=== PATIENT | female | born 1925 | race Caucasian/White ===

== ENCOUNTER 2016-12-16 12:08 | Emergency (ER) | payer MEDICARE ==
--- NOTE | 2016-12-16 12:03 | ED.REPORT ---
HPI-Stroke / CVA Dec 16, 2016 ED Provider: Dr. Staples Pt is an 89 y/o female w/ a hx of stroke in 2015, HTN, previous breast CA, presenting to the ED via EMS due to stroke-like symptoms with last known normal 11:25 today. The patient was eating in the dining room at her living facility and began to experience left-sided weakness and then became unresponsive. EMS was called and code-stroke was activated. Current medications are unknown although previous medication list does not have any anticoagulants listed. Further history unable to be obtained. Nursing Notes Stated Complaint: STROKE Nursing Notes Reviewed: Yes Allergies: Coded Allergies: No Known Allergies (Unverified Allergy, Unknown, 12/19/14) Scheduled Acetaminophen (Tylenol) 325 Mg Tablet 650 MG PO Q4 Amlodipine (Norvasc) 5 Mg Tablet 10 MG PO DAILY Ascorbic Acid (Vitamin C) 500 Mg Tablet 500 MG PO DAILY (Reported) Aspirin (Aspir 81) 81 Mg Tablet.dr 81 MG PO DAILY (Reported) Atorvastatin (Lipitor) 20 Mg Tablet 20 MG PO HS Cholecalciferol (Vitamin D3) (Vitamin D) 1,000 Unit Capsule 1,000 UNIT PO DAILY (Reported) Metoprolol Succinate ER (Metoprolol Succinate ER) 25 Mg Tab.er.24h 25 MG PO DAILY (Reported) Multivitamin with Minerals (Multiple Vitamin) 1 Each Tablet 1 EACH PO DAILY ( Reported) Multivitamin with Minerals (One Daily 50 Plus) 1 Each Tablet 1 EACH PO DAILY Omeprazole Magnesium (Omeprazole) 20 Mg Capsule.dr 20 MG PO DAILY (Reported) Polyethylene Glycol 3350 (Miralax) 17 Gm Powd.pack 17 GM PO DAILY Sennosides (Senna) 8.6 Mg Capsule 8.6 MG PO DAILY Scheduled PRN Docusate Sodium (Docusate Sodium) 50 Mg Capsule 50 MG PO DAILY PRN PRN For Constipation General Time Seen by Provider: 12:10 Chief Complaint Weakness Left-sided Hx Obtained From: EMS Unable to Obtain Hx: Patient condition Arrived By: Ambulance Time last known well 11:25 Sudden in Onset?: Yes Symptom Duration: Since onset Progression Since Onset: Constant Risk Factors )( TPA Administration/Criteria Stroke Thrombolytic Therapy : TPA Considered: No TPA Administered Intravenously: No, not indicated Past Medical History Past Medical History 1. Hypertension. 2. Reflux disease and heartburn. 3. CVA about 2 years ago with transient left-sided weakness. 4. [place] CVA 5. Hx of breast cancer Past Surgical History Bowel ressection Smoking History Current Every Day Smoker Social History Alcohol Use: 1-3 per week Drug Use: Denies drug use Ambulatory Status Walker Review of Systems Unable to Obtain ROS Patient condition Neurologic: Reports: Change LOC, Focal weakness Physical Exam Initial Vital Signs Vital Signs (First) Date Time Temp Pulse Resp B/P Pulse Ox O2 Delivery O2 Flow Rate FiO2 12/16/16 12:36 35.8 78 22 265/60 94 Nasal Cannula 3 Initial VS: Reviewed, Vital signs abnormal ENT: Mucous membranes moist, Conjunctiva normal, No scleral icterus Abdomen / GI: Soft, Non-tender, No distention Extremities: Vascular intact, No swelling Skin: Warm, Dry, No cyanosis General/Constitutional: Awake Head / Eyes: Atraumatic, Normocephalic Neck: Atraumatic, No swelling Respiratory / Chest: Breath sounds NL, Breath sounds = bilat, No rales, No rhonchi, No wheezing Cardiovascular: Heart rate NL, Regular rhythm, Heart sounds NL, No gallop, No murmurs, No rubs NEURO: Opens eyes to voice Opens and closes RUE to answer questions PSYCH: Unable to be assessed Interpretation & Diagnostics Interpretation & Diagnostics: CT chest/abd with and without contrast: IMPRESSION: 1. No evidence of aortic dissection or aortic aneurysm. 2. Atherosclerosis including the coronary vasculature. 3. Atherosclerotic disease likely causes significant stenosis of the origin of the superior mesenteric artery and the left renal artery. 4. Cardiomegaly. 5. Patulous esophagus. Distal esophageal obstructing lesion cannot be excluded. Recommend either endoscopy or air-contrast upper GI series for further evaluation when clinically feasible. 6. 1.3 cm left thyroid nodule. Recommend thyroid ultrasound when clinically feasible. 7. 1.1 cm right lower lobe solid nodule. Recommend follow up CT scan of the chest in 3 months based on criteria outlined below. Fleischner Society criteria for SOLID lung nodule followup. Nodule size (mm)Low-risk patientHigh-risk [id number] follow-up neededFollow-up at 12 mo; if no change, no further follow-up>9-5Duvykq-ab CT at 12 mo; if no change, no further follow-up needed.Initial follow-up CT at 6-12 mo, then 18-24 mo if no change. >6-8Initial follow-up CT at 6-12 mo, then 18-24 mo if no change. Initial follow-up CT at 3-6 mo, then 9-12 mo and 24 mo if no change. >8Follow-up CT at 3, 9, 24 mo. Or PET and/or biopsy.Same as for low-risk pts. Dictated by: Yovana Lyle MD, PhD on 12/16/2016 at 12:53 Approved by: Yovana Lyle MD, PhD on 12/16/2016 at 13:06 ECG Interpretation ECG Interpretation: Sinus rhythm rate 90 T wave inversions in V1, V2 Time: 12:38 Interpreted by: ED physician Normal ECG Interpretation: No acute ischemic changes CT Head Interpretation IMPRESSION: 1. Right temporal hemorrhage with midline shift and compression of the third ventricle. In addition, there is also appearance of intraventricular tension in the posterior right horn. 2. Moderate microvascular ischemic changes. The above findings were called to the ER on 12/16/16 at 12:21 PM. A message was left for Dr. Garrett Wilder was not immediately available for consultation. However, it is noted that Dr. Garrett Wilder was aware of the hemorrhage. This study fulfills neurological imaging criteria for inclusion or exclusion of acute stroke therapies based on available published neurological guidelines. Dictated by: Tala Hines M.D. on 12/16/2016 at 12:21 Approved by: Tala Hines M.D. on 12/16/2016 at 12:25 Study: Head CT no contrast Interpretation / Wet Read by: Wet read ED physician, Interpret - Radiologist, Discussed w radiologist CT C-Spine Interpretation IMPRESSION: No acute bony abnormality is found in the cervical spine. Prominent degenerative changes are present. Old irregularity of the right third rib is present. Dictated by: Rajinder Butler M.D. on 12/16/2016 at 12:36 Approved by: Rajinder Butler M.D. on 12/16/2016 at 12:40 Study type: CT no contrast Interpretation / Wet Read by: Interpret - Radiologist Re-Eval/Medical Decision Med Decision/Clinical Course 89-year-old female history of CVAs presenting as code stroke. Patient was called code stroke on arrival. Her last normal was approximately 1 hour prior to arrival. Then with left-sided deficits. On arrival she was responsive and following some commands but became increasingly somnolent and altered. Her head CT showed a large right-sided intracranial hemorrhage. I discussed with the family and they requested comfort measures and reported this is what the family would have wanted. Therefore care was withdrawn and patient was kept comfortable. She at 1342. No cardiac activity no respirations, unresponsive to pain, pupils fixed and dilated, no cardiac activity on bedside ultrasound or on court recording monitor for several minutes of observation. Cause of hemorrhagic stroke. Re-Evaluation/Progress #1: Time of Eval: 12:16 Re-Evaluation/Progress Note: body technician informs me of intracranial hemorrhage. I went to the CT room and confirmed presence of large acute hemorrhage. Will contact the daughter. Re-Evaluation/Progress #2: Time of Eval: 12:19 Re-Evaluation/Progress Note: Case discussed with daughter over the phone. She is requesting comfort measures at this time. Re-Evaluation/Progress #3: Time of Eval: 12:30 Re-Evaluation/Progress Note: The daughter has arrived and the current status of the case was discussed. She confirms the plan for comfort care. I informed the patient of hemorrhagic stroke and need for admission. She squeezes my hand to indicate that she understands her condition. Re-Evaluation/Progress #4: Time of Eval: 13:30 Re-Evaluation/Progress Note: Nurse called me into room due to extreme bradycardia. Patient exhibiting few sporadic heartbeats. The daughter understands the situation. Re-Evaluation/Progress #5: Time of Eval: 13:40 Re-Evaluation/Progress Note: Nurse called me into the room due to asystole. The patient was observed for 2 minutes without heart beat, respiration. No cardiac contractility. Time of called 13:42. The patient's brother is now present and understands the situation. Counseled Regarding: Diagnosis, Lab results Patient Discharge & Departure Impression: Primary Impression: Hemorrhagic stroke Additional Impression: Cardiac arrest Disposition: Discharge Condition All VS Reviewed: Yes Condition: Referrals: OTHER,PHYSICIAN (PCP) Crit Care Except Billable Proc Time Spent: 105-134 minutes (125) Services Performed: Patient management by me, Time spent at bedside, Reviewing test results, Reviewing imaging, Discussing patient care, Documentation in record, Time with fam/surrogate Scribe Attestation Portions of this note were transcribed by Edouard Cain. I, Dr. Staples personally performed the history, physical exam and medical decision-making; I reviewed and confirmed the accuracy of the information in the transcribed note. Signed by Birdie Barnhart, 12/16/16 - 1230 Vincent Staples MD Dec 16, 2016 12:03 EDOUARD CAIN Dec 16, 2016 12:12
[~2016-12-16 12:08] MED LIST: ACET-1890 PO; AMLO-39 PO; ASCO500T8 PO; ASPI-628 PO; ATOR20TA PO; CHOL100045 PO; DOCU50CA7 PO; METO25TA99 PO; MULT-426 PO; MULT-621 PO; OMEP-113 PO; POLY17PO6 PO; SENN8.6C6 PO
--- NOTE | 2016-12-16 12:27 | DRSVH ---
PROCEDURE: CT BRAIN (TPA) ([id number]) INDICATIONS: Stroke TECHNIQUE: Noncontrast 4.5 mm thick angled axial sections acquired from the foramen magnum to the vertex, with c oronal reformats. COMPARISON: None. FINDINGS: Image quality: Excellent. CSF spaces: Basal cisterns are patent. No extra-axial fluid collections. The ventricles are symmet kobi in size and shape. Brain: There is a parenchymal focus of hyperdensity within the right temporal lobe involving the bas al ganglia internal and external capsules. It measures 29 mm AP by 26 mm transverse. There is makeda zeb of the third ventricle with approximately 3 mm above right to left midline shift. There is also appearance of hyperdensity within the posterior horn of the right lateral ventricle. There is cerebra l volume loss for age, with resultant ventricular and sulcal prominence. There are periventricular a nd deep white matter chronic small vessel ischemic changes. There is intracranial internal carotid a rtery atherosclerosis. Skull and face: Calvarium and visualized facial bones appear intact, without suspicious lesions. Sinuses: Visualized sinuses and mastoids are clear. IMPRESSION: 1. Right temporal hemorrhage with midline shift and compression of the third ventricle. In addition, there is also appearance of intraventricular tension in the posterior right horn. 2. Moderate microvascular ischemic changes. The above findings were called to the ER on 12/16/16 at 12:21 PM. A message was left for Dr. Garrett meade was not immediately available for consultation. However, it is noted that Dr. Garrett Wilder was aware of the hemorrhage. This study fulfills neurological imaging criteria for inclusion or exclusion of acute stroke therapie s based on available published neurological guidelines. Dictated by: Tala Hines M.D. on 12/16/2016 at 12:21 Approved by: Tala Hines M.D. on 12/16/2016 at 12:25
[2016-12-16 12:36] VITALS: BP 265/60; PULSE 78; RESP 22; O2SAT 94
--- NOTE | 2016-12-16 12:42 | DRSVH ---
PROCEDURE: CT CERVICAL SPINE WITHOUT CONTRAST ([id number]) INDICATIONS: POSITIVE HEAD SCAN/?TRANSFER TO [facility] TECHNIQUE: Noncontrast 3 mm thick sections acquired from the skull base to the T4 level. Sagittal and coronal r eformats were then constructed. For radiation dose reduction, the following was used: automated exp osure control, adjustment of mA and/or kV according to patient size. COMPARISON: [facility], , CHEST 1VW (PORTABLE), 12/19/2014, 15:05. FINDINGS: Image quality: Excellent. Bones: There is no irregularity of the posterior right third rib seen on the chest x-ray of 12/19/14. No acute bony abnormality is seen in the cervical spine. Prominent disc degenerative disease is prese nt from the C3-4 level inferiorly to the C6-7 level. Soft: Prevertebral soft tissues are normal in thickness. No paravertebral hematomas. No apical pne umothoraces. IMPRESSION: No acute bony abnormality is found in the cervical spine. Prominent degenerative changes are present. Old irregularity of the right third rib is present. Dictated by: Rajinder Butler M.D. on 12/16/2016 at 12:36 Approved by: Rajinder Butler M.D. on 12/16/2016 at 12:40
[2016-12-16] MEDS ORDERED: Ondansetron 2 mg/mL 2 mL Inj IVPUSH PRN (12:50)
[2016-12-16 13:06] VITALS: BP 122/99; PULSE 85; RESP 15; O2SAT 91
--- NOTE | 2016-12-16 13:07 | DRSVH ---
PROCEDURE: CT ANG CHEST/ABD W/WO CONTRAST ([id number]) INDICATIONS: PATIENT FOUND DOWN/ABNORMAL BLOOD PRESSURE TECHNIQUE: Precontrast 5 mm thick sections acquired from the lung apices to the iliac crests. After the adminis tration of intravenous contrast, 3 mm thick sections again acquired from the lung apices to the iliac crests. 3-dimensional maximum intensity projection (MIP) oblique sagittal and coronal reformats wer e then acquired, and/or 3-dimensional volume rendering reformats. For radiation dose reduction, the following was used: automated exposure control. COMPARISON: [facility], , CHEST 1VW (PORTABLE), 12/19/2014, 15:05. FINDINGS: Image quality: Excellent. AORTA: Intramural hematoma: Absent. Maximum hematoma thickness: None applicable. Focal contrast enhancement: Intramural blood pool (< 2 mm neck or imperceptible communication with aortic lumen): Absent. Ulcer-like projection (broad communication with aortic lumen > 3 mm): Absent. Dissection: Absent Jake classification: None applicable Maximum aortic diameter: 3.4 cm. [If Jake A dissection, > 5.0 cm has a poorer prognosis. If Sta nford B dissection, > 4.0 cm has a poorer prognosis.] Periaortic hematoma: Absent. CHEST: Lungs and pleura: Emphysematous changes noted in the lung apices. Atelectasis noted in the dependent portion of the lung bases. 1.1 cm nodule noted in the posterior and medial aspect of the superior seg ment of the right lower lobe. No pleural effusions or pneumothorax. Central and peripheral airways are patent and normal in caliber. Mediastinum: Heart size is enlarged. Atherosclerotic calcifications noted in the aorta, great vessel s and the coronary vasculature. No pericardial effusion. No mediastinal or hilar adenopathy by size criteria. Central pulmonary arteries are normal in size. Esophagus is patulous. Distal obstructing e sophageal lesion cannot be excluded. Recommend endoscopy or air-contrast upper GI series for further evaluation. Bones and chest wall: Surgical clips noted in the left breast and left axilla. No axillary adenopath y by size criteria. 1.3 cm diameter hypoattenuating nodule noted in the left lobe of the thyroid gla nd. No suspicious bony lesions. No vertebral body compression fractures. ABDOMEN: Vasculature: Celiac trunk and mesenteric arteries are patent. Renal arteries are also patent. Solid organs: Liver and spleen are normal in size. Gallbladder is within normal limits. Biliary sy stem is non dilated. Pancreas enhances normally. No adrenal nodules. Left renal cortical atrophy no shari. No hydronephrosis. Peritoneum and bowel: No free fluid or air. Bowel loops are normal in caliber and wall thickness. Nodes and vessels: No retroperitoneal or mesenteric adenopathy by size criteria. Inferior vena cava is normal in morphology. Scattered atherosclerotic calcifications noted in the abdominal pelvic vasc ulature The calcifications appear to cause significant stenosis of the origin of the superior mesenteric haily ry and the left renal artery. Bones: No suspicious bony lesions. No vertebral body compression fractures. Lateral spine. Grade 1 L5-S1 spondylolisthesis noted. Miscellaneous: No ventral hernias. IMPRESSION: 1. No evidence of aortic dissection or aortic aneurysm. 2. Atherosclerosis including the coronary vasculature. 3. Atherosclerotic disease likely causes significant stenosis of the origin of the superior mesenteri c artery and the left renal artery. 4. Cardiomegaly. 5. Patulous esophagus. Distal esophageal obstructing lesion cannot be excluded. Recommend either endo scopy or air-contrast upper GI series for further evaluation when clinically feasible. 6. 1.3 cm left thyroid nodule. Recommend thyroid ultrasound when clinically feasible. 7. 1.1 cm right lower lobe solid nodule. Recommend follow up CT scan of the chest in 3 months based o n criteria outlined below. Fleischner Society criteria for SOLID lung nodule followup. Nodule size (mm)Low-risk patientHigh-risk [id number] follow-up neededFollow-up at 12 mo; if no mcconnell e, no further follow-up>[id number] CT at 12 mo; if no change, no further follow-up needed.Initial f ollow-up CT at 6-12 mo, then 18-24 mo if no change. >6-8Initial follow-up CT at 6-12 mo, then 18-24 mo if no change. Initial follow-up CT at 3-6 mo, then 9-12 mo and 24 mo if no change. >8Follow-up CT at 3, 9, 24 mo. Or PET and/or biopsy.Same as for low-risk pts. Dictated by: Yovana Lyle MD, PhD on 12/16/2016 at 12:53 Approved by: Yovana Lyle MD, PhD on 12/16/2016 at 13:06
== END 2016-12-16 16:20 | disposition expired ==
LOC: SED 12:08
DX: I63.9 Cerebral infarction, unspecified (principal); I46.9 Cardiac arrest, cause unspecified; I10 Essential (primary) hypertension; F17.200 Nicotine dependence, unspecified, uncomplicated; Z85.3 Personal history of malignant neoplasm of breast; Z79.82 Long term (current) use of aspirin; Z79.899 Other long term (current) drug therapy
CPT/HCPCS: 70450; 71275; 72125; 74175; 93005; 99291; 99292; Q9967